=== PATIENT | female | born 1955 | race African-American/Black ===

== ENCOUNTER 2019-07-28 08:02 | Day surgery (SDC) | payer OTHER, MEDICARE ==
[~2019-07-28] VITALS: Ht 165.1 cm; Wt 77.1 kg
[2019-07-28 08:55] VITALS: BP 143/76
[2019-07-28 11:42] VITALS: BP 136/86
== END 2019-07-28 11:05 | disposition home or self-care (01) ==
LOC: DS 08:02 → GI 10:30 → DS 11:05 → GI 11:30 → OR 11:30
DX: Z12.11 Encounter for screening for malignant neoplasm of colon (principal); D12.5 Benign neoplasm of sigmoid colon; D64.9 Anemia, unspecified; Z88.0 Allergy status to penicillin; Z79.899 Other long term (current) drug therapy; Z98.51 Tubal ligation status; Z96.642 Presence of left artificial hip joint; Z78.0 Asymptomatic menopausal state
CPT/HCPCS: 45378; J1200; J1610; J2250; J2310; J3010; J3490

== ENCOUNTER 2019-08-23 11:28 | Emergency (ER) | payer BC, OTHER, MEDICARE ==
[~2019-08-23] VITALS: Ht 165.1 cm; Wt 83.2 kg
[2019-08-23 11:33] VITALS: Ht 165.1 cm; Wt 83.2 kg
[2019-08-23 12:12] LABS: CALCIUM 8.9 mg/dL (8.5-10.1); CARBON DIOXIDE 28.5 mmol/L (21-32); CHLORIDE SERUM 106 mmol/L (98-107); CREATININE SERUM 0.9 mg/dL (0.6-1.0); GFR1 > 60 mL/min; GLUCOSE SERUM 95 mg/dL (74-106); POTASSIUM SERUM 4.5 mmol/L (3.5-5.1); SODIUM SERUM 142 mmol/L (136-145)
[2019-08-23 12:16] LABS: ALBUMIN 3.9 g/dL (3.4-5.0); ALKALINE PHOSPHATASE 111 U/L (46-116); ALT/SGPT 20 U/L (14-59); AST/SGOT 21 U/L (15-37); BILIRUBIN TOTAL 0.33 mg/dL (0.20-1.00); TOTAL PROTEIN, SERUM 7.5 g/dL (6.4-8.2)
[2019-08-23 13:01] LABS: PLATELET COUNT 310 x10^3mcL (130-400)
[2019-08-23 13:03] LABS: RED CELL DISTRIBUTION WIDTH 16.1 % (11.5-14.5)
[2019-08-23 13:30] LABS: BAND NEUTROPHIL 0 % (0-10); BASOPHIL 0 % (0-2); MONOCYTE 14 % (0-7); SEGMENTED NEUTROPHILS 50 % (37-75)
[2019-08-23 13:31] LABS: PLATELET MORPHOLOGY PLATELETS DECREASED; ovalocyte/elliptocyte 1+; rbc morphology (normal/abnorm) ABNORMAL (NORMAL)
[2019-08-23 14:39] VITALS: BP 168/75
== END 2019-08-23 14:58 | disposition home or self-care (01) ==
LOC: ED 11:28
DX: R07.89 Other chest pain (principal); R10.13 Epigastric pain
CPT/HCPCS: 36415; Q0092